=== PATIENT | male | born 1975 | race Caucasian/White ===

== ENCOUNTER 2022-05-11 12:27 | Outpatient (CLI) | payer OTHER, SELFPAY ==
--- NOTE | 2022-05-12 10:04 | WPDNEUROLOGY ---
Neurology EEG Report General Information Date of Study: 05/11/22 TEST eeg DIAGNOSIS seizures CONDITION OF RECORDING awake drowsy and sleep EEG NUMBER [id number] CLINICAL HISTORY patient reported he has epilepsy and has been seeing neurologist since a teenager EEG DESCRIPTION background rhythm consists of medium voltage 8 to 9 hertz per 2nd alpha posteriorly. Low-voltage beta activity seen diffusely admixed with waxing and waning posterior alpha rhythm. Bilateral symmetrical sleep activity seen during sleep. Hyperventilation not done. Photic stimulation produced normal drive. Non paroxysmal. Nonfocal. Nonlateralizing. IMPRESSION No significant abnormalities no
== END 2022-05-11 12:28 | disposition home or self-care (01) ==
LOC: ANHNEURO 12:30
PROVIDERS: Visit Provider Psychiatry & Neurology Neurology
DX: G40.909 Epilepsy, unspecified, not intractable, without status epilepticus (principal)
CPT/HCPCS: 95816

== ENCOUNTER 2024-01-02 07:55 | Outpatient (CLI) | payer OTHER, SELFPAY ==
--- NOTE | ~2024-01-02 | MR_ITS ---
MRI of the brain Clinical History: Seizures, lupus Technique: Axial and sagittal T1-weighted images were acquired. These were followed by axial T2-weigh xenia, diffusion weighted, gradient, and FLAIR images. Following intravenous administration of 20 cc Mu ltiHance gadolinium, T1-weighted fat-sat imaging was performed in the axial, coronal, and sagittal pl anes. Findings: There is no acute infarct, intracranial hemorrhage, or intracranial mass lesion. 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 Absent septum pellucidum present, with somewhat dysmorphic contour of the region of the left lateral ventricle. No mass effect or midli ne shift. Paranasal sinuses and mastoid air cells are clear. Major intracranial flow voids are grossly intact. Sagittal midline structures are otherwise intact. Incidental note is made of a 2.8 x 2.2 cm T2 hyperintense, T1 hypointense, heterogeneously enhancing solid mass in the superficial portion of the right parotid gland, in the preauricular region. 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 Associated absent septum pellucidum and somewhat dysmorphic contour of the region of the left lateral ventricle. Incidentally noted 2.8 x 2.2 cm heterogeneously enhancing solid right parotid gland masses, as detail ed above. 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 Recommend additional dedicated workup as indicated. Reviewed, dictated and finalized at [facility]. 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 Associated absent septum pellucidum and somewhat dysmorphic contour of the momo on of the left lateral ventricle. Incidentally noted 2.8 x 2.2 cm heterogeneously enhancing solid right parotid g land masses, as detailed above. MR imaging is nonspecific, but is consistent wi th a benign versus malignant parotid tumor. Recommend additional dedicated work up as indicated.
== END 2024-01-02 07:56 | disposition home or self-care (01) ==
LOC: ANHIMG 08:03
PROVIDERS: Visit Provider Psychiatry & Neurology Neurology
DX: R07.9 Chest pain, unspecified (principal); M32.9 Systemic lupus erythematosus, unspecified; R56.9 Unspecified convulsions; D11.0 Benign neoplasm of parotid gland
CPT/HCPCS: 70553; A9577

== ENCOUNTER 2024-09-21 07:10 | Outpatient (CLI) | payer MEDICARE, SELFPAY ==
--- NOTE | ~2024-09-21 | CT_ITS ---
CT of the Abdomen and Pelvis: Indication: Hematuria Technique: 2.5 mm axial scans were obtained through the abdomen and pelvis prior to and following in travenous administration of 130 cc of Omnipaque 350. Dose reduction technique was used on this scan b y utilizing automated exposure control and iterative reconstruction technique. The dose-length produc t (DLP) was 3053.55 mGy-cm. Findings: Scans through the lung bases are unremarkable. The liver, spleen, pancreas, right adrenal gland, and kidneys are within normal limits. Small calcifi ed gallstones are present. 2 cm left adrenal myelolipoma present. No evidence of aortic aneurysm. No lymphadenopathy. No bowel obstruction or bowel wall thickening. There is no evidence to suggest acute appendicitis. Sm all fat-containing umbilical hernia present. Images through the pelvis were performed. Urinary bladder unremarkable. No pelvic mass seen. No ascit es. Impression: No etiology for hematuria identified. Cholelithiasis. Small fat-containing umbilical hernia. 2 cm left adrenal myelolipoma. Reviewed, dictated and finalized at [facility]. [facility] [employer] Impression: No etiology for hematuria identified. Cholelithiasis. Small fat-containing umbilical hernia. 2 cm left adrenal myelolipoma.
--- NOTE | ~2024-09-21 | XR_ITS ---
Supine and upright views of the abdomen Clinical history: Hematuria Findings: Bowel gas pattern is nonspecific. No evidence for obstruction or free air. There are indete rminate linear calcifications in the right mid abdomen at the L3-L4 level.. Osseous structures are in tact. Impression: Indeterminate linear calcifications in the right midabdomen, as above. Correlation with CT to be perf ormed later today is advised. Reviewed, dictated and finalized at location . R [facility]ARKER Impression: Indeterminate linear calcifications in the right midabdomen, as above. Correlat ion with CT to be performed later today is advised.
[2024-09-21 07:41] LABS: Estimated Glomerular Filt Rate > 60
== END 2024-09-21 07:11 | disposition home or self-care (01) ==
PROVIDERS: Visit Provider Nurse Practitioner Family
DX: R31.0 Gross hematuria (principal); K80.20 Calculus of gallbladder without cholecystitis without obstruction; K44.9 Diaphragmatic hernia without obstruction or gangrene; D35.02 Benign neoplasm of left adrenal gland
CPT/HCPCS: 74018; 74178; Q9967